=== PATIENT | male | born 1980 | race Caucasian/White ===

== ENCOUNTER → 2021-05-24 | Outpatient (CLI) | payer OTHER, SELFPAY ==
--- NOTE | 2021-05-25 09:37 | REP ---
INDICATION: SINUSITIS. Left-sided nasal congestion. History of septoplasty. COMPARISON: NONE. TECHNIQUE: Helical scanning is acquired and 2 mm axial images re-formatted. Coronal MPR images are generated and reviewed. FINDINGS: The frontal sinuses are clear. Maxillary sinuses show no mucosal thickening. There is no evidence of ethmoid or sphenoid sinus opacification. The mastoid sinuses are symmetrically aerated and clear. The bony nasal septum is midline. No nasal polyp is appreciated. Nasal turbinates soft tissues are symmetric. There is a tiny aerated tad bullosa on the left. Ostiomeatal complexes are patent bilaterally. The nasal ethmoid recesses appear clear. No intraorbital abnormality is seen. Visualized intracranial structures are unremarkable. IMPRESSION: Negative paranasal sinus/maxillofacial CT study. There are no mucosal paranasal sinus changes visible. <Electronically signed by Haim Hickman > 05/25/21 0929
== END ==
LOC: M RAD 13:28
PROVIDERS: ATTEND Otolaryngology
DX: J32.0 Chronic maxillary sinusitis (principal)

== ENCOUNTER → 2021-12-12 | Outpatient (REF) | payer OTHER | LOC: M LAB REF 11:00 | PROVIDERS: ATTEND Internal Medicine Gastroenterology | DX: K52.9 Noninfective gastroenteritis and colitis, unspecified (principal) ==

== ENCOUNTER 2022-01-01 06:28 | Day surgery (SDC) | payer OTHER ==
[~2022-01-01] VITALS: Ht 185.4 cm; Wt 108.9 kg
[~2022-01-01 06:28] MED LIST: D 50CAP2 PO; LEXA1TAB2 PO; MELA3TAB30 PO; NS 1,000 ML IV ONE
[2022-01-01] MEDS ORDERED: propofoL 200 MG/20 ML VIAL As Ordered ONE (08:10)
[2022-01-01] MEDS ORDERED: LIDOCAINE 2% 100MG/5ML SDV (FOR ANES.) As Ordered ONE (08:10)
[2022-01-01 08:35] VITALS: BP 131/86
== END 2022-01-01 08:40 | disposition home or self-care (01) ==
LOC: M OPP 06:28
PROVIDERS: ATTEND Internal Medicine Gastroenterology
DX: K63.5 Polyp of colon (principal); K63.89 Other specified diseases of intestine; K64.8 Other hemorrhoids; R19.7 Diarrhea, unspecified; G47.33 Obstructive sleep apnea (adult) (pediatric); Z99.89 Dependence on other enabling machines and devices; Z79.899 Other long term (current) drug therapy